=== PATIENT | female | born 1935 | race Caucasian/White ===

== ENCOUNTER 2016-11-10 15:14 | Emergency (ER) | payer OTHER, MEDICARE, MEDICAID ==
[~2016-11-10] VITALS: Ht 152.4 cm; Wt 59.9 kg
[2016-11-10] MEDS ORDERED: DULO1CAP3 PO (16:19)
[2016-11-10] MEDS ORDERED: FOLI1TAB2 PO (16:19)
[2016-11-10] MEDS ORDERED: PANT40TA2 PO (16:19)
[2016-11-10] MEDS ORDERED: HUMA75IN2 SC (16:19)
[2016-11-10] MEDS ORDERED: OXYB10TA PO (16:19)
[2016-11-10] MEDS ORDERED: PLAV75TA38 PO (16:19)
[2016-11-10] MEDS ORDERED: HUMA75VL SC (16:19)
[2016-11-10] MEDS ORDERED: LISI40TAB PO (16:19)
[2016-11-10] MEDS ORDERED: VITA50003 PO (16:19)
[2016-11-10] MEDS ORDERED: ROSU20TA PO (16:19)
[2016-11-10] MEDS ORDERED: METF500T4 PO (16:19)
--- NOTE | 2016-11-10 17:09 | REP ---
Clinical: Trauma . Findings: Age-related atrophy and microvascular ischemic changes are appreciated along with significant periventricular leukomalacia. The ventricles and sulci are symmetric. Harry-white differentiation is maintained. There is no evidence for acute intracranial hemorrhage, mass/mass effect, pathology or infarction. No extra-axial fluid collection. Calvarium is intact. Paranasal sinuses and mastoid air cells are clear. Impression: Age related atrophy and microvascular ischemic changes. No acute intracranial hemorrhage, infarction, or mass/mass effect. Signed by Howard Hogue MD 11/10/2016 05:02 P
[2016-11-10 17:29] LABS: INR 0.95
[2016-11-10 17:44] LABS: ANION GAP 5 MEQ/L (8-16); BLOOD UREA NITROGEN 21 MG/DL (7-18); CALCIUM LEVEL 9.8 MG/DL (8.8-10.2); CARBON DIOXIDE LEVEL 31 MEQ/L (21-32); CHLORIDE LEVEL 107 MEQ/L (98-107); CREATININE FOR GFR 0.87 MG/DL (0.55-1.02); GLOMERULAR FILTRATION RATE > 60.0 (>32); GLUCOSE, FASTING 43 MG/DL (83-110); POTASSIUM SERUM 4.2 MEQ/L (3.5-5.1); SODIUM LEVEL 143 MEQ/L (136-145)
[2016-11-10 17:59] LABS: BASO % 0.5 % (0.0-1.0); EOS # 0.3 K/mm3 (0.0-0.50); EOS % 2.6 % (0.0-3.0); LARGE UNSTAINED CELL # 0.1 K/mm3 (0.0-0.4); LARGE UNSTAINED CELL % 1.3 % (0.0-4.0); LYMPH # 1.7 K/mm3 (1.5-4.5); LYMPH % 13.7 % (24.0-44.0); MEAN CORPUSCULAR HEMOGLOBIN 31.7 pg (27.0-33.0); MEAN CORPUSCULAR HGB CONC 33.7 g/dl (32.0-36.5); MONO # 0.6 K/mm3 (0.0-0.8); MONO % 4.8 % (0.0-5.0); NEUTROPHILS # 8.8 K/mm3 (1.8-7.7); NEUTROPHILS % 77.2 % (36.0-66.0); PLATELET COUNT, AUTOMATED 282 k/mm3 (150-450); RED CELL DISTRIBUTION WIDTH 12.7 % (11.5-14.5); WHITE BLOOD COUNT 11.4 K/mm3 (4.0-10.0)
[2016-11-10 18:31] VITALS: BP 130/56
--- NOTE | 2016-11-10 18:36 | REP ---
Clinical: Trauma. Technique: AP and lateral views of the right tibia / fibula. Findings: No acute fracture dislocation. Skeletal structures, joint spaces, and surrounding soft tissues are normal for age. Impression: No acute fracture or dislocation. Signed by Howard Hogue MD 11/10/2016 06:28 P
--- NOTE | 2016-11-10 18:38 | REP ---
Clinical: Trauma. Comparison: None. Findings: Mediastinum and cardiac silhouette are normal. Lung harris demonstrate diffuse chronic changes without focal consolidation, effusion, or pneumothorax. Skeletal structures demonstrate osteopenia and degenerative changes including old healed right rib fractures. No definite, obvious acute rib fracture identified. Impression: 1. Chronic-appearing changes. No obvious focal consolidation, effusion or pneumothorax. 2. Old right rib fractures. Signed by Howard Hogue MD 11/10/2016 06:30 P
--- NOTE | 2016-11-11 09:08 | REP ---
Clinical: Trauma. Technique: Axial images through the thoracic spine with coronal and sagittal re-formations. Findings: Exaggerated kyphosis is centered at prior vertebroplasty at the T8 level which appears calcified and demonstrates compression deformity. The remainder of the thoracic vertebral bodies are intact demonstrating age-related degenerative changes without acute fracture / compression injury or subluxation. Spinal canal appears patent. Posterior elements and spinous processes appear intact. Impression: Chronic-appearing compression fracture at T8 with prior vertebroplasty and dense calcification. Remainder of the thoracic vertebral bodies demonstrate age-related degenerative changes without further acute fracture / compression injury or subluxation. If the patient remains symptomatic consider MRI for further investigation and for evaluation of these spinal cord. Signed by Howard Hogue MD 11/11/2016 08:59 A
--- NOTE | 2016-11-11 09:09 | REP ---
Clinical: Trauma. Technique: Axial images from the skull base to the thoracic inlet with coronal and sagittal re-formations. Findings: Advanced multilevel degenerative disc osteophyte complexes are noted. Chronic posterior bulge at the C3-4 level is appreciated. Alignment and lordosis is maintained. There is no evidence for acute fracture / compression injury or subluxation. Spinous processes are intact. Paravertebral soft tissues are normal. Impression: Advanced multilevel degenerative disc osteophyte complexes. No evidence for acute fracture / compression injury or subluxation. Signed by Howard Hogue MD 11/11/2016 09:00 A
== END 2016-11-10 18:31 | disposition home or self-care (01) ==
LOC: M ED 17:06
DX: M79.604 Pain in right leg (principal); V49.50XA Passenger injured in collision with unspecified motor vehicles in traffic accident, initial encounter; Y92.410 Unspecified street and highway as the place of occurrence of the external cause; Y93.89 Activity, other specified; Y99.9 Unspecified external cause status